=== PATIENT | male | born 1975 | race Caucasian/White ===

== ENCOUNTER → 2024-10-08 12:57 | Observation (INO) ==
[2024-10-06] MEDS: CLINDAMYCIN PHOSPHATE/D5W 600 MG/50 ML PIGGYBACK IV SCH (17:37)
[2024-10-06 17:41] LABS: Basophils%(Percent) Auto 0.3 (0.0-1.3); Eosinophils%(Percent) Auto 0.2 % (0.0-4.0); Granulocytes % - Auto 75.7 % (49.1-73.1); Granulocytes#(Absolute)- Auto 9.2 (2.0-6.2); Hematocrit 44.9 % (41.3-50.1); Mean Corpuscular Volume 80.2 fl (81.9-96.5); Monocytes #(Absolute)- Auto 0.9 (0.2-0.8); Monocytes %(Percent)- Auto 7.7 % (4.5-10.7); Platelet Count 229 K/uL (142-355); White Blood Count 12.1 K/uL (3.7-9.6)
[2024-10-06] MEDS: SODIUM CHLORIDE 0.45 % 1,000 ML IV SCH (17:45)
[2024-10-06 17:50] LABS: Potassium 2.8 mmol/L (3.6-5.2)
[2024-10-06] MEDS: DOXYCYCLINE HYCLATE 100 MG in 0.9 % SODIUM CHLORIDE MB+ 100 ML IV SCH (20:32)
[2024-10-06] MEDS: ASCORBIC ACID 500 MG TABLET PO SCH (20:32)
[2024-10-07 04:50] LABS: Urine Appearance CLEAR (CLEAR); Urine Blood NEGATIVE (NEG - TRACE); Urine Color YELLOW (STRAW/YELL.); Urine Urobilinogen Normal (NORMAL)
[2024-10-07 05:21] LABS: Amphetamine Screen Urine NEG. (NEGATIVE); Cannabinoid Screen Urine POS. (NEGATIVE); Cocaine Screen Urine NEG. (NEGATIVE); Methadone Screen Urine NEG. (NEGATIVE); Opiate Screen Urine NEG. (NEGATIVE)
[2024-10-07 08:49] LABS: Basophils%(Percent) Auto 0.3 (0.0-1.3); Eosinophils#(Absolute)Auto 0.1 (0.0-0.3); Eosinophils%(Percent) Auto 0.6 % (0.0-4.0); Granulocytes % - Auto 75.3 % (49.1-73.1); Granulocytes#(Absolute)- Auto 7.8 (2.0-6.2); Mean Corpuscular Volume 80.5 fl (81.9-96.5); Monocytes #(Absolute)- Auto 0.9 (0.2-0.8); Monocytes %(Percent)- Auto 8.4 % (4.5-10.7); Platelet Count 214 K/uL (142-355); White Blood Count 10.4 K/uL (3.7-9.6)
[2024-10-07 09:04] LABS: Potassium 3.9 mmol/L (3.6-5.2)
[2024-10-07] MEDS: ENOXAPARIN SODIUM 40 MG/0.4 ML SYRINGE SUBQ SCH (09:33)
[2024-10-07] MEDS: PANTOPRAZOLE SODIUM 40 MG TABLET.DR PO SCH (09:33)
[2024-10-07] MEDS: ZINC SULFATE 50 MG CAPSULE PO SCH (09:33)
[2024-10-07] MEDS: LOSARTAN POTASSIUM 50 MG TABLET PO SCH (09:33)
--- NOTE | 2024-10-07 10:08 | History & Physical Report ---
H&P: HPI History of Present Illness Chief complaint: cellulitis rt leg, edema rt leg, htn Narrative: Patient is a 48-year-old male direct admitted to med/surg by RODRI Murphy for Cellulitis of Right Leg, Edema Right Leg, Hypertension, and Peripheral Vascular Disease. Patient admitted under observation status for further observation and treatment. Review of Systems Status of ROS 10 or more systems reviewed and unremark able except as noted in history and below Constitutional Denies: fever, chills, change in weight or fatigue Eyes Denies: change in vision, blurry vision, blind spots or light sensitivity Ears, nose, mouth, and throat Denies: throat pain, neck pain, throat swelling or difficulty swallowing Cardiovascular Reports: edema (RLE); Denies: chest pain or palpitations Respiratory Denies: shortness of breath, cough, wheezing or stridor Gastrointestinal Denies: abdominal pain, nausea, vomiting or coffee grounds in vomit Genitourinary Denies: painful urination, urinary frequency or urinary urgency Musculoskeletal Reports: extremity pain (RLE) and extremity swelling (RLE); Denies: back pain or neck pain Integumentary/Breast Denies: rash, itching, redness or skin pain Neurological Denies: headache, numbness in extremities, weakness in extremities, lack of coordination or dizziness Psychiatric Denies: anxiety, mood swings, panic attacks or change in sleep pattern Endocrine Denies: excessive urination, excessive thirst or fatigue Hematologic/Lymphatic Denies: easy bruising, easy bleeding or enlarged lymph nodes Allergic/Immunologic Denies: hives, throat swelling or tongue swelling PFSH PFSH Medical History Hypercholesteremia Diabetes mellitus Hypertension History of cellulitis Surgical History History of appendectomy H/O heart artery stent Family History Grandmother Cancer Social History Smoking status: never smoker Within the past year, how often did you have a drink containing alcohol: beth hly or less Non-prescribed substance use: denies use What is your current living situation: I presently have a place to live Problems where you live: no known problems Highest level of school completed/degree received: high school Are you now , , , , never or living with a partner: Do you need help with ADLs: I don't need any help Do you think of yourself as: straight/heterosexual Meds Home Medications and Allergies Home Medications Medication Instructions Recorded Confirmed Type fluticasone propionate 50 2 spray intranasal BID 12/20/23 12/20/23 History mcg/actuation nasal spray,suspension losartan 100 mg tablet 100 mg PO DAILY 12/20/23 12/20/23 History metformin 500 mg tablet 500 mg PO BID 12/20/23 12/20/23 History simvastatin 20 mg tablet 20 mg PO DAILY 12/20/23 12/20/23 History clindamycin HCl 150 mg capsule 450 mg (3 x 150 mg) PO TID 08/29/24 Rx cellulitis #90 caps Allergies Allergy/AdvReac Type Severity Reaction Status Date / Time No Known Drug Allergies Allergy Verified 08/29/24 19:43 Exam Exam: Patient in NAD. Constitutional: abnormal general appearance (disheveled), no apparent distress, abnormal body habitus (obese), limitations noted (physical limitations) and alert Vital Signs - 24 hr 10/06/24 16:44 10/06/24 20:02 10/07/24 00:00 Temperature 97.5 F L 98.4 F 98.4 F Pulse Rate [Right Femoral] 74 71 72 Respiratory Rate 16 19 19 Blood Pressure [Ri ght Arm] 153/98 139/88 144/85 Pulse Oximetry 97 98 98 Oxygen Delivery Me thod Room Air Room Air Room Air 10/07/24 04:00 10/07/24 08:00 Temperature 97.7 F 98.1 F Pulse Rate [Right Femoral] 70 68 Respiratory Rate 19 19 Blood Pressure [Ri ght Arm] 140/91 133/84 Pulse Oximetry 97 97 Oxygen Delivery Il thod Room Air Room Air HENMT: normocephalic, head/scalp atraumatic, hearing grossly normal bilaterally, external ears normal and external nose normal Eyes: PERRL, EOMs intact bilaterally, conjunctivae normal, fundi normal bilaterally and periorbital findings normal Neck/C-Spine: visual inspection normal and trachea midline Lymph: no lymphadenopathy noted and no lymphedema noted Chest: inspection of chest normal and palpation of chest normal Respiratory: breath sounds equal bilaterally, normal respiratory effort, clear to auscultation bilaterally and no wheezes Cardiovascular: normal heart rate noted, regular rhythm noted, no gallop, no rub, no murmur, no JVD, no clicks and no bruits noted Gastrointestinal: abdomen normal to inspection, abdomen soft to palpation, nontender to palpation, nondistended, normoactive bowel sounds, hepatosplenomegaly noted, no masses, no pulsatile mass and no ascites Genitourinary: no CVA tenderness and bladder normal to palpation Back/Pelvis: spine abnormal to inspection, no thoracic spine tenderness and no lumbar spine tenderness Extremities: abnormal to inspection (RLE), abnormal to palpation (RLE), tenderness noted (RLE) and abnormal ROM noted 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: 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, no movement abnormality noted, no focal motor deficit noted, sensory deficit noted, deep tendon reflexes 2+ bilaterally, gait abnormality noted, speech normal, coordination normal, no pronator drift noted and GCS normal Psychiatry: Mental Status Exam documented within this Exam's Psych section mental status grossly normal, oriented x3, thought process normal, cooperative, affect abnormality noted (depressed), psychomotor activity normal and memory normal Feel stressed/tense/nervous/anxious/difficulty sleeping: not at all Skin: skin color abnormal, rash noted, no lesions, no ecchymosis noted, no wounds, no lacerations, skin turgor abnormal Reports (edematous) (RLE), no jaundice, no petechiae, no mottling, nails abnormality noted and alopecia noted Assessment and Plan Assessment and Plan (1) Cellulitis of leg, right: Code(s): L03.115 - Cellulitis of right lower limb (2) Hypertension: Qualifiers: Hypertension type: primary hypertension Qualified Code(s): I10 - Essential (primary) hypertension Code(s): I10 - Essential (primary) hypertension (3) Leukocytosis: Qualifiers: Leukocytosis type: unspecified Qualified Code(s): D72.829 - Elevated white blood cell count, unspecified Code(s): D72.829 - Elevated white blood cell count, unspecified (4) Hypoalbuminemia: Code(s): E88.09 - Other disorders of plasma-protein metabolism, not elsewhere classified (5) Marijuana abuse: Code(s): F12.10 - Cannabis abuse, uncomplicated (6) Diabetes mellitus: Qualifiers: Diabetes mellitus complication status: with hyperglycemia 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 use: unspecified terminal make up operator insulin use status Diabetes mellitus type: type 2 Qualified Code(s): E11.65 - Type 2 diabetes mellitus with hyperglycemia Code(s): E11.9 - Type 2 diabetes mellitus without complications Plan Sodium Chloride 1,000 mls @ 100 mls/hr IV CONT Ascorbic Acid 500 mg PO Q12H Zinc Sulfate 50 mg PO DAILY Clindamycin Phosphate/Dextrose 600 mg in 50 mls @ 50 mls/hr IV Q6H Pantoprazole Sodium 40 mg PO DAILY Enoxaparin Sodium 40 mg SUBQ DAILY Losartan Potassium 100 mg PO DAILY Doxycycline Hyclate 100 mg in Sodium Chloride 100 mls @ 100 mls/hr IV Q12H johanny erythema area Acetaminophen 1,000 mg PO Q6H PRN Ondansetron Hcl 4 mg INJ Q6H PRN Magnesium Hydroxide 30 ml PO DAILY PRN Insulin Regular per sliding scale SUBQ PRN Results Labs Labs: CBC 10/06/24 10/07/24 Range/Units 17:20 05:15 WBC 12.1 H 10.4 H (3.7-9.6) K/uL RBC 5.6 5.1 (4.40-5.80) M/uL Hgb 14.8 13.5 L (14.0-17.4) gm/dL Hct 44.9 41.0 L (41.3-50.1) % Plt Count 229 214 (142-355) K/uL Gran % 75.7 H 75.3 H (49.1-73.1) % Lymph % (Auto) 16.1 L 15.4 L (17.6-39.05) % [place] % (Auto) 7.7 8.4 (4.5-10.7) % Eos % (Auto) 0.2 0.6 (0.0-4.0) % Baso % (Auto) 0.3 0.3 (0.0-1.3) Lymph # (Auto) 1.9 1.6 (0.8-2.9) [place] # (Auto) 0.9 H 0.9 H (0.2-0.8) Eos # (Auto) 0.0 0.1 (0.0-0.3) Baso # (Auto) 0.0 0.0 (0.0-0.1) Absolute Gran (auto) 9.2 H 7.8 H (2.0-6.2) CMP 10/06/24 10/07/24 17:20 05:15 Sodium 138 139 Potassium 2.8 L 3.9 Chloride 98.0 100.0 Carbon Dioxide 33 H 35 H BUN 14 12 Creatinine 1.1 1.1 Glucose 108 114 H Calcium 9.3 9.0 Liver Function 10/06/24 10/07/24 Range/Units 17:20 05:15 Total Bilirubin 0.96 0.57 (0.0-1.0) mg/dL AST 9 L 12 L (15-37) U/L ALT 19 L 18 L (30-65) U/L Alkaline Phosphatase 78 65 (50-136) U/L Albumin 3.3 L 2.8 L (3.4-5.0) g/dL Urine 10/07/24 03:25 Urine Color Yellow Urine Appearance Clear Ur Specific [place] 1.010 Urine Protein Negative Urine Glucose (UA) Normal Pulse Oximetry Attestation: I have reviewed the pertinent pulse oximetry results.
[2024-10-07 10:19] LABS: PCO2 ABG 44 mmHg (35-45); PO2 ABG 67 mmHg (60-100); pH ABG 7.46 (7.35-7.45)
[2024-10-07 10:20] LABS: Base Excess ABG 6.6 mmo1/L (-2-2); Oxygen Saturation ABG 94 % (92-100)
[2024-10-07] MEDS: MAGNESIUM, ALUMINUM HYDROXIDE 30 ML ORAL.SUSP PO PRN (19:43)
[2024-10-07] MEDS: ACETAMINOPHEN 500 MG TABLET PO PRN (20:31)
[2024-10-08 06:03] LABS: Basophils%(Percent) Auto 0.5 (0.0-1.3); Eosinophils#(Absolute)Auto 0.2 (0.0-0.3); Eosinophils%(Percent) Auto 2.3 % (0.0-4.0); Granulocytes % - Auto 58.9 % (49.1-73.1); Granulocytes#(Absolute)- Auto 4.2 (2.0-6.2); Mean Corpuscular Volume 81.5 fl (81.9-96.5); Monocytes #(Absolute)- Auto 0.8 (0.2-0.8); Monocytes %(Percent)- Auto 11.1 % (4.5-10.7); Platelet Count 216 K/uL (142-355); White Blood Count 7.2 K/uL (3.7-9.6)
[2024-10-08 08:09] VITALS: TEMP 97.8
[2024-10-08 08:46] LABS: Potassium 3.8 mmol/L (3.6-5.2)
[2024-10-08] MEDS: ASPIRIN 81 MG TABLET.DR PO SCH (10:39)
[2024-10-08] MEDS: hydroCHLOROthiazide 25 MG TABLET PO SCH (10:41)
[2024-10-08] MEDS: LOSARTAN POTASSIUM 50 MG TABLET PO SCH (10:41)
--- NOTE | 2024-10-08 10:49 | Discharge Summary ---
DS: Providers Provider Date of admission: 10/06/24 15:52 Primary care physician: Rosalinda Mcnair DO Admitting clinician: Josephine Murphy Attending physician on admission: Rosalinda Mcnair Attending physician on discharge: Rosalinda Mcnair Discharging clinician: Rosalinda Mcnair Anticipated date of discharge: 10/08/24 DS: Diagnosis Discharge Diagnosis (1) Cellulitis of leg, right: (2) Hypertension: Qualifiers: Hypertension type: primary hypertension Qualified Code(s): I10 - Essential (primary) hypertension (3) Leukocytosis: Qualifiers: Leukocytosis type: unspecified Qualified Code(s): D72.829 - Elevated white blood cell count, unspecified (4) Hypoalbuminemia: (5) Marijuana abuse: (6) Diabetes mellitus: Qualifiers: Diabetes mellitus complication status: with hyperglycemia Diabetes mellitus senior care insulin use: unspecified extermination inspector insulin use status Diabetes mellitus type: type 2 Qualified Code(s): E11.65 - Type 2 diabetes mellitus with hyperglycemia Plan Sodium Chloride 1,000 mls @ 100 mls/hr IV CONT Ascorbic Acid 500 mg PO Q12H Zinc Sulfate 50 mg PO DAILY Clindamycin Phosphate/Dextrose 600 mg in 50 mls @ 50 mls/hr IV Q6H Pantoprazole Sodium 40 mg PO DAILY Enoxaparin Sodium 40 mg SUBQ DAILY Doxycycline Hyclate 100 mg in Sodium Chloride 100 mls @ 100 mls/hr IV Q12H Aspirin 81 mg PO DAILY Hydrochlorothiazide 12.5 mg PO DAILY Losartan Potassium 50 mg PO BID Acetaminophen 1,000 mg PO Q6H PRN Ondansetron Hcl 4 mg INJ Q6H PRN Magnesium Hydroxide 30 ml PO DAILY PRN Insulin Regular per sliding scale SUBQ PRN Discharge home for self care. DS: Summary Hospital Course Hospital Course: Patient is a 48-year-old male direct admitted to med/surg by RODRI Murphy for Cellulitis of Right Leg, Edema Right Leg, Hypertension, and Peripheral Vascular Disease. Patient admitted under observation status for further observation and treatment. Day two of hospital stay, patient reports he is feeling "better". Cellulitis has improved and stayed within marked boundaries. Patient is read to discharge home for self care with continued antibiotics. Follow up with PCP in 5-7 days of discharge or prior if needed. Status at Discharge Functional status at discharge: independent ambulation Overall status at discharge: patient is progressing back to baseline Time Spent with Patient Time attestation: Total time spent providing and/or coordinating discharge services: 48 Time spent: greater than 30 minutes Exam Exam: Patient in NAD. Constitutional: abnormal general appearance (disheveled), no apparent distress, abnormal body habitus (obese), limitations noted (physical limitations) and alert Vital Signs - 24 hr 10/07/24 16:00 10/07/24 20:11 10/08/24 00:00 Temperature 98.3 F 98.0 F 98.0 F Pulse Rate [Right Femoral] 71 70 67 Respiratory Rate 19 18 20 Blood Pressure [Ri ght Arm] 150/87 129/80 119/72 Pulse Oximetry 96 97 95 Oxygen Delivery Me thod Room Air Room Air Room Air 10/08/24 04:00 10/08/24 08:00 Temperature 97.5 F L 97.8 F Pulse Rate [Right Femoral] 54 L 61 Respiratory Rate 18 18 Blood Pressure [Ri ght Arm] 114/69 149/97 Pulse Oximetry 97 97 Oxygen Delivery Me thod Room Air Room Air HENMT: normocephalic, head/scalp atraumatic, hearing grossly normal bilaterally, external ears normal and external nose normal Eyes: PERRL, EOMs intact bilaterally, conjunctivae normal, fundi normal bilaterally and periorbital findings normal Neck/C-Spine: visual inspection normal and trachea midline Lymph: no lymphadenopathy noted and no lymphedema noted Chest: inspection of chest normal and palpation of chest normal Respiratory: breath sounds equal bilaterally, normal respiratory effort, clear to auscultation bilaterally and no wheezes Cardiovascular: normal heart rate noted, regular rhythm noted, no gallop, no rub, no murmur, no JVD, no clicks and no bruits noted Gastrointestinal: abdomen normal to inspection, abdomen soft to palpation, nontender to palpation, nondistended, normoactive bowel sounds, hepatosplenomegaly noted, no masses, no pulsatile mass and no ascites Genitourinary: no CVA tenderness and bladder normal to palpation Back/Pelvis: spine abnormal to inspection, no thoracic spine tenderness and no lumbar spine tenderness Extremities: abnormal to inspection (RLE), abnormal to palpation (RLE), tenderness noted (RLE) and abnormal ROM noted 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, no movement abnormality noted, no focal motor deficit noted, sensory deficit noted, deep tendon reflexes 2+ bilaterally, gait abnormality noted, speech normal, coordination normal, no pronator drift noted and GCS normal Psychiatry: Mental Status Exam documented within this Exam's Psych section mental status grossly normal, oriented x3, thought process normal, cooperative, affect abnormality noted (depressed), psychomotor activity normal and memory normal Skin: skin color abnormal, rash noted, no lesions, no ecchymosis noted, no wounds, no lacerations, skin turgor abnormal Reports (edematous) (RLE - improving), no jaundice, no petechiae, no mottling, nails abnormality noted and alopecia noted DS: Data Data Completed and Pending Labs on day of discharge: Labs from last 24 hours 10/08/24 05:40 WBC 7.2 RBC 5.2 Hgb 13.7 L Hct 42.0 MCV 81.5 L MCH 26.5 L MCHC 32.6 L RDW 15.6 H Plt Count 216 MPV 7.6 Gran % 58.9 Lymph % (Auto) 27.2 [place] % (Auto) 11.1 H Eos % (Auto) 2.3 Baso % (Auto) 0.5 Lymph # (Auto) 2.0 [place] # (Auto) 0.8 Eos # (Auto) 0.2 Baso # (Auto) 0.0 Absolute Gran (auto) 4.2 Sodium 140 Potassium 3.8 Chloride 102.0 Carbon Dioxide 32 Anion Gap 6.0 BUN 13 Creatinine 1.0 Estimated GFR 94.0 Glucose 104 Calcium 9.1 Total Bilirubin 0.50 AST 13 L ALT 21 L Alkaline Phosphatase 58 Total Protein 6.9 Albumin 2.8 L Preliminary micro results at discharge 10/06/24 17:20 Blood Culture - Preliminary Blood - Venous Draw (Peripheral) 10/06/24 17:15 Blood Culture - Preliminary Blood - Venous Draw (Peripheral) Discharge Plan Discharge Disposition: Home, Self-Care Condition: Improved Discharge Medications: New cephalexin 500 mg capsule 500 mg PO TID Qty: 20 0RF clindamycin HCl 300 mg capsule 300 mg PO Q6H Qty: 28 0RF Continued losartan 100 mg tablet 100 mg PO DAILY metformin 500 mg tablet 500 mg PO BID Patient Comments: TAKE 1 TABLET BY MOUTH TWICE DAILY simvastatin 20 mg tablet 20 mg PO DAILY Patient Comments: TAKE 1 TABLET BY MOUTH ONCE DAILY hydrochlorothiazide 12.5 mg tablet 12.5 mg PO DAILY losartan 50 mg tablet 50 mg PO BID testosterone cypionate 200 mg/mL oil 200 mg IM Q14D Patient Comments: inject 1 ml IM every 2 weeks Ozempic 0.25 mg or 0.5 mg (2 mg/3 mL) pen injector 0.5 mg SUBCUT Q7D Patient Comments: inject 0.5 mg subcutaneously every 7 days aspirin 81 mg tablet,delayed release (DR/EC) 81 mg PO DAILY Patient Comments: TAKE 1 TABLET BY MOUTH ONCE DAILY Discharge Orders: Discharge Order (Routine); Ordered 10/08/24 Ordered By: Rosalinda Mcnair Activity: increase activity as tolerated Diet: advance to your usual diet Interventions: Discharge Assessment Last Done: 10/08/24 12:32 MED/SURG & ICU Observation Charge Sheet Last Done: 10/08/24 12:31 Patient Instructions: Cellulitis (GEN) Activity Restrictions/Additional Instructions: thigh high compression stockings follow up PCP in 5 -7 days for further evaluation of cellulitis and circulation in the legs elevate legs as tolerated and wear shoes when walking and look into getting some diabetic shoes return to PCP or ER as appropriate von if fever, worsening cellulitis or any concerns Forms: Portal/Health Info Access Inst Follow-Ups: Rosalinda Mcnair DO [Primary Care Provider] - 10/14/24 10:30 am Discharge Date/Time: 10/08/24 12:57
[2024-10-08 12:30] VITALS: BP 141/90; PULSE 70; RESP 17
[~2024-10-08 12:57] MED LIST: LOSARTAN POTASSIUM 50 MG TABLET PO SCH; ONDANSETRON HCL/PF 4 MG/2 ML VIAL INJ PRN
== END | disposition home or self-care (01) ==
LOC: MS
PROVIDERS: ADMIT Family Medicine; ATTEND Family Medicine
DX: E78.00 Pure hypercholesterolemia, unspecified; R60.0 Localized edema; Z79.82 Long term (current) use of aspirin; E88.09 Other disorders of plasma-protein metabolism, not elsewhere classified; F12.10 Cannabis abuse, uncomplicated; E11.65 Type 2 diabetes mellitus with hyperglycemia; L03.115 Cellulitis of right lower limb; Z79.85 Long-term (current) use of injectable non-insulin antidiabetic drugs; I10 Essential (primary) hypertension; E11.51 Type 2 diabetes mellitus with diabetic peripheral angiopathy without gangrene; Z79.899 Other long term (current) drug therapy; Z95.5 Presence of coronary angioplasty implant and graft; Z79.84 Long term (current) use of oral hypoglycemic drugs